=== PATIENT | female | born 1990 | race Caucasian/White ===

== ENCOUNTER → 2017-01-29 | Day surgery (SDC) | payer OTHER ==
[~2017-01-29] VITALS: Ht 162.6 cm; Wt 78.5 kg
[~2017-01-29] MED LIST: LORTAB ELIXIR 715 ML PO; MOTRIN SUS100 MG/5 M PO
[2017-01-29 08:09] LABS: HEMOGLOBIN 12.9 gm/dl (12.3-15.3); RED BLOOD COUNT 4.56 M/UL (4.00-5.10); WHITE BLOOD COUNT 8.6 K/UL (4.5-11.0)
[2017-01-29 13:14] LABS: WHITE BLOOD COUNT 8.3 K/UL (4.5-11.0)
[2017-01-29 13:16] LABS: RED BLOOD COUNT 3.58 M/UL (4.00-5.10)
== END | disposition home or self-care (01) ==
LOC: OR 05:53
PROVIDERS: Nurse Anesthetist, Certified Registered; Obstetrics & Gynecology
PROC: 10D17ZZ Extraction of Products of Conception, Retained, Via Natural or Artificial Opening (ICD-10-PCS; principal; 2017-01-29 07:30)
DX: O02.1 Missed abortion (principal); K21.9 Gastro-esophageal reflux disease without esophagitis; F90.9 Attention-deficit hyperactivity disorder, unspecified type; Z82.49 Family history of ischemic heart disease and other diseases of the circulatory system; Z83.3 Family history of diabetes mellitus
CPT/HCPCS: 36415; 85027; 86850; 86900; 86901; J1885; J2210; J2250; J2405; J2590; J2795; J7050; J7120